=== PATIENT | female | born 1970 | race Asian ===

== ENCOUNTER → 2017-01-01 | Outpatient (CLI) | payer OTHER ==
[~2017-01-01] MED LIST: NO MEDS
== END | disposition home or self-care (01) ==
LOC: EMPHLTH 15:24
PROVIDERS: ATTEND Internal Medicine
DX: Z02.1 Encounter for pre-employment examination (principal)
CPT/HCPCS: 86735; 86762; 86765; 86787

== ENCOUNTER 2024-10-30 10:07 | Emergency (ER) | payer OTHER ==
[~2024-10-30] VITALS: Ht 162.6 cm; Wt 72.7 kg
[2024-10-30 10:09] VITALS: TEMP 98.2
[2024-10-30] MEDS ORDERED: LOSA-382 PO (10:17)
[2024-10-30] MEDS ORDERED: CHOL200074 PO (10:17)
[2024-10-30] MEDS ORDERED: SOTA80TA PO (10:17)
[2024-10-30] MEDS ORDERED: ATOR-2 PO (10:17)
[2024-10-30] MEDS ORDERED: METF-81 PO (10:17)
[2024-10-30] MEDS: ONDANSETRON HCL 4 MG/2 ML VIAL IVP ONE (10:26)
[2024-10-30] MEDS: METOCLOPRAMIDE HCL 5 MG/ML 2 ML VIAL IVP ONE (10:27)
[2024-10-30] MEDS: MECLIZINE HCL 25 MG TABLET PO ONE (10:27)
[2024-10-30] MEDS: DiphenhydrAMINE HCL 50 MG/ML VIAL IVP ONE (10:27)
[2024-10-30] MEDS: ACETAMINOPHEN 500 MG TABLET PO ONE (10:27)
[2024-10-30] MEDS: SODIUM CHLORIDE 0.9% 1,000 ML IV ONE (10:27)
[2024-10-30 10:33] LABS: BASOPHILS % (AUTO) 0.6 % (0.0-2.0); EOSINOPHILS % (AUTO) 3.6 % (1.0-6.0); HEMATOCRIT 41.2 % (36-46); HEMOGLOBIN 13.6 g/dL (12.0-16.0); LYMPHOCYTES # (AUTO) 2.2 K/uL (1.0-4.8); LYMPHOCYTES % (AUTO) 30.1 % (22.0-44.0); MEAN CORPUSCULAR HEMOGLOBIN 28.3 pg (26.0-34.0); MEAN CORPUSCULAR HGB CONC 32.9 G/dL (31.0-37.0); MEAN CORPUSCULAR VOLUME 86 fL (80-100); MONOCYTES # (AUTO) 0.6 K/uL (0.1-1.0); MONOCYTES % (AUTO) 7.6 % (2.0-9.0); NEUTROPHILS # (AUTO) 4.3 K/uL (1.8-7.7); NEUTROPHILS % (AUTO) 58.1 % (40.0-70.0); PLATELET COUNT (AUTO) 321 K/uL (150-450); RED BLOOD CELL COUNT(AUTO) 4.79 MIL/uL (4.00-5.20); RED CELL DISTRIBUTION WIDTH 13.1 % (11.5-14.5); WHITE BLOOD COUNT (AUTO) 7.3 K/uL (4.5-11.0)
[2024-10-30 10:40] LABS: ANION GAP 8 mmol/L (8-16); CALCIUM, TOTAL 9.3 mg/dL (8.8-10.5); CARBON DIOXIDE 28 mmol/L (22-29); CHLORIDE 103 mmol/L (98-107); CREATININE 0.78 mg/dL (0.60-1.30); GLOMERULAR FILTR. RATE CALC > 60 mL/min (>60); GLUCOSE,RANDOM 161 mg/dL (70-110); POTASSIUM 3.8 mmol/L (3.5-5.1); SODIUM SERUM 138 mmol/L (136-145); UREA NITROGEN, BLOOD 12 mg/dL (7-18)
[2024-10-30 10:46] LABS: ALBUMIN 3.8 g/dL (3.4-5.0); BILIRUBIN,DIRECT 0.1 mg/dL (0.00-0.20); BILIRUBIN,TOTAL 0.4 mg/dL (0.1-1.0); MAGNESIUM 2.1 mg/dL (1.80-2.40); TOTAL PROTEIN, SERUM 7.9 g/dL (6.4-8.2)
[2024-10-30 10:52] LABS: TROPONIN I-HIGH SENSITIVITY Less Than 4 ng/L (<51)
[2024-10-30] MEDS: HydrALAZINE HCL 20 MG/ML VIAL IVP ONE (11:54)
[2024-10-30 12:02] LABS: APPEARANCE,URINE CLEAR (CLEAR); BILIRUBIN,URINE NEGATIVE (NEGATIVE); COLOR,URINE LIGHT YELLOW (YELLOW); GLUCOSE, URINE (UA) TRACE mg/dL (NEGATIVE); KETONES,URINE NEGATIVE (NEGATIVE); LEUKOCYTE ESTERASE ,URINE NEGATIVE (NEGATIVE); NITRATE,URINE NEGATIVE (NEGATIVE); OCCULT BLOOD,URINE TRACE (NEGATIVE); PH,URINE 5.5 (5.0-8.0); PROTEIN,URINE NEGATIVE (NEGATIVE); UROBILINOGEN,URINE <=1.0 mg/dL (<=1.0)
[2024-10-30 12:11] LABS: BACTERIA,URINE None Seen /HPF (None Seen); RBC,URINE 0-2 /HPF (0-2); SQUAMOUS EPITHELIAL CELL,UR Few /LPF (None Seen); WBC,URINE None Seen /HPF (0-5)
[2024-10-30 12:42] VITALS: BP 146/80; PULSE 70; RESP 16; O2SAT 99
[2024-10-30] MEDS ORDERED: ONDA-104 PO (13:07)
== END 2024-10-30 13:48 | disposition home or self-care (01) ==
LOC: EMS 10:07
DX: R51.9 Headache, unspecified (principal); E11.9 Type 2 diabetes mellitus without complications; I10 Essential (primary) hypertension; I48.91 Unspecified atrial fibrillation; Z90.49 Acquired absence of other specified parts of digestive tract; Z79.84 Long term (current) use of oral hypoglycemic drugs; Z79.899 Other long term (current) drug therapy
CPT/HCPCS: 99285; 96374; 96375; 70450; 71045; 96361; 80048; 80076; 81001; 82550; 83735; 83880; 84484; 84703; 85025; 36415; 93005; J1200; J0360; J2765; J2405; J7030